=== PATIENT | female | born 1985 | race Caucasian/White ===

== ENCOUNTER 2018-11-18 12:44 | Emergency (ER) | payer MEDICAID ==
[~2018-11-18] VITALS: Ht 160 cm; Wt 86.2 kg
--- NOTE | 2018-11-18 12:48 | NUR ---
PT AMBULATED TO ER BED 08
[2018-11-18 12:52] VITALS: BP 127/84
--- NOTE | 2018-11-18 12:56 | NUR ---
33/F BIB SELF c/o fissure to bilateral nipples , NO DRAINAGE x 2 wks. tender to touch continues to breast feed 18months old child. PATIENT STATES PAIN OF 0/10 AT THIS TIME;PATIENT POSITIONED FOR COMFORT; HOB ELEVATED; BEDRAILS UP X1; BED DOWN. ER MD MADE AWARE OF PT STATUS.
--- NOTE | 2018-11-18 13:06 | NUR ---
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 Fofana during patient exam
--- NOTE | 2018-11-18 13:30 | NUR ---
Patient discharged with v/s stable. Patient acting appropriatly, states 3/10 pain at this time and feel better to go home. Written and verbal after care instructions given and explained. Patient alert, oriented and verbalized understanding of instructions. Ambulatory with steady gait. All questions addressed prior to discharge. ID band removed. Patient advised to follow up with PMD. Rx of Keflex given. Patient educated on indication of medication including possible reaction and side effects. Opportunity to ask questions provided and answered.
[2018-11-18 13:31] VITALS: BP 127/84
== END 2018-11-18 13:30 | disposition home or self-care (01) ==
LOC: MED 12:44
DX: N61.0 Mastitis without abscess (principal); L08.89 Other specified local infections of the skin and subcutaneous tissue
CPT/HCPCS: 99283

== ENCOUNTER 2019-08-29 19:27 | Emergency (ER) | payer MEDICAID ==
[~2019-08-29] VITALS: Ht 162.6 cm; Wt 86.2 kg
[2019-08-29 19:45] VITALS: BP 119/78
--- NOTE | 2019-08-29 19:45 | NUR ---
TO BED # 04 AMBULATORY
--- NOTE | 2019-08-29 19:50 | NUR ---
PT 33 Y/O FEMALE BIB SELF FOR LAC TO L THUMB. PER PT SHE WAS WASHING THE DISHES AND A GLASS BROKE AND CUT HER THUMB. LAC APPROX. 2.5 IN. CMS INTACT. CAP REFILL <3. NO ACTIVE BLEEDING. NO EDEMA AND REDNESS NOTED. PT ABLE TO MOVE THUMB. PT AAOX4. RESPIRATIONS ARE EVEN AND UNLABORED. AFEBRILE. VSS. DENIES N/V/D. BED LOCKED AND IN LOWEST POSITION. MEDHX: NONE ALLERGIES: NKA
--- NOTE | 2019-08-29 20:27 | NUR ---
HERMINIA VILLAFANA AT BEDSIDE ASSESSING PT.
[2019-08-29] MEDS ORDERED: LIDOCAINE MPF 1% 10 MG/ML VIAL INJ ONE (20:30)
--- NOTE | 2019-08-29 20:45 | NUR ---
SUTURE SET UP AT BEDSIDE.
[2019-08-29] MEDS ORDERED: BACITRACIN OINT 500 UNITS/GM PKT TP ONE (20:55)
[2019-08-29 21:00] VITALS: BP 119/78
--- NOTE | 2019-08-29 21:00 | NUR ---
Patient discharged with v/s stable. Written and verbal after care instructions given and explained. Patient alert, oriented and verbalized understanding of instructions. Ambulatory with steady gait. All questions addressed prior to discharge. ID band removed. Patient advised to follow up with PMD. Rx of IBUPROFEN, BACITRACIN given. Patient educated on indication of medication including possible reaction and side effects. Opportunity to ask questions provided and answered.
--- NOTE | 2019-08-29 21:05 | NUR ---
MABEL EMT PLACED THUMB SPICA VELCRO SPLINT. CMS INTACT. CAP REFIL <3. PT DENIES PAIN, OR NUMBNESS OR TINGLING. PT EDUCATION GIVEN BY RN. PT ABLE TO REPEAT INTRUCTIONS ON SPLINT CARE.
== END 2019-08-29 21:00 | disposition home or self-care (01) ==
LOC: MED 19:27
DX: S61.011A Laceration without foreign body of right thumb without damage to nail, initial encounter (principal); W25.XXXA Contact with sharp glass, initial encounter; Y93.G1 Activity, food preparation and clean up; Y92.89 Other specified places as the place of occurrence of the external cause; Y99.8 Other external cause status
CPT/HCPCS: 12002; 99283; J2001

== ENCOUNTER 2019-08-31 20:20 | Emergency (ER) | payer MEDICAID ==
[~2019-08-31] VITALS: Ht 162.6 cm; Wt 86.2 kg
[2019-08-31 20:30] VITALS: BP 114/60
--- NOTE | 2019-08-31 20:32 | NUR ---
TO LOBBY A/W BED AMBULATORY
--- NOTE | 2019-08-31 22:15 | NUR ---
33 Y/O FEMALE PRESENTS WITH WOUND CHECK ON RIGHT THUMB. PT RECEIVED SUTURES ON LEFT THUMB DUE TO LACERATION AND IS PRESENT FOR HER 48 HOUR CHECK-UP. DENIES ANY PAIN AT SUTURE SITE. CAP REFILL <3. RADIAL PULSE 2+. NO DRAINAGE OR FOUL ODOR COMING FROM SUTURE SITE. DENIES FEVER/CHILLS. NO PMH NKA
[2019-08-31 22:49] VITALS: BP 114/60
--- NOTE | 2019-08-31 22:49 | NUR ---
Patient discharged with v/s stable. Written and verbal after care instructions given and explained. Patient verbalized understanding. Ambulatory with steady gait. All questions addressed prior to discharge. Advised to follow up with PMD.
== END 2019-08-31 22:49 | disposition home or self-care (01) ==
LOC: MED 20:20
DX: S61.011D Laceration without foreign body of right thumb without damage to nail, subsequent encounter (principal)
CPT/HCPCS: 58301; 99281; 99284

== ENCOUNTER 2023-08-08 10:21 | Emergency (ER) | payer MEDICAID ==
[~2023-08-08] VITALS: Ht 162.6 cm; Wt 86.2 kg
[2023-08-08 10:35] VITALS: BP 136/76; PULSE 83; RESP 19; TEMP 98.1; O2SAT 96
[2023-08-08] MEDS ORDERED: KETOROLAC 60 MG/2 ML VIAL IM ONE (11:35)
[2023-08-08] MEDS: KETOROLAC 60 MG/2 ML VIAL IM ONE (11:36)
[2023-08-08 12:25] VITALS: BP 136/76; PULSE 83; RESP 19; TEMP 98.1; O2SAT 96
[2023-08-08] MEDS ORDERED: IBUP-2213 PO (12:34)
== END 2023-08-08 12:49 | disposition home or self-care (01) ==
LOC: MED 10:21
DX: R51.9 Headache, unspecified (principal); H57.89 Other specified disorders of eye and adnexa
CPT/HCPCS: 81002; 81025; 96372; 99283; J1885